=== PATIENT | female | born 1995 | race American Indian/Alaskan Native ===

== ENCOUNTER 2022-02-02 15:32 | Emergency (ER) | payer MEDICAID, SELFPAY ==
[2022-02-02 15:33] VITALS: BP 133/111; PULSE 97; TEMP 37.4; O2SAT 97; BMI 31.1
--- NOTE | 2022-02-02 16:20 | XR_ITS ---
Final Report Patient: [facility] Facility:?[facility] Patient ID:?[id number] Site Patient ID:?[id number]. Site :?[id number] Study:?XRay Extremity RIBS WITH PA CHEST-02/02/2022 4:44:03 PM Ordering Physician:Kay Becerril Final Report: Indication: Sternal fracture 1 month. Pain in the ribs. Technique: PA view of the chest. Two views of the left ribs. Comparison: None Findings: The heart is normal in size. The lungs are clear. No infiltrate, pleural effusion, or pneumothorax is identified. No left-sided rib fractures are identified. Impression: No left-sided rib fracture is identified Dictated by Radha Avila MD @ 02/02/2022 4:46:22 PM (Electronic Signature)
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
[2022-02-02 17:44] VITALS: BP 96/74; PULSE 87; RESP 14; O2SAT 99
== END 2022-02-02 17:15 | disposition home or self-care (01) ==
LOC: ED 17:20
PROVIDERS: Emergency Provider Family Medicine
DX: R07.89 Other chest pain (principal); K29.70 Gastritis, unspecified, without bleeding
CPT/HCPCS: 71101; 99283; 99284